=== PATIENT | female | born 1970 | race Caucasian/White ===

== ENCOUNTER 2017-01-01 01:44 | Observation (INO) | payer MEDICAID ==
[2017-01-01] MEDS ORDERED: ASPIRIN 81 MG CHEW PO STA (02:05)
[2017-01-01] MEDS ORDERED: NITROGLYCERIN SL TABS 0.4 MG TAB SUBLINGUAL STA ×3 (02:05)
--- NOTE | 2017-01-01 02:08 | ED ---
General Adult HPI - General Chief complaint: Chest Pain Stated complaint: chest pains Time Seen by Provider: 01/01/17 01:58 Source: patient, family, RN notes reviewed Mode of arrival: ambulatory Limitations: no limitations - History of Present Illness Initial comments: Patient is a pleasant 46-year-old female presenting to the emergency department complaining of chest discomfort. Discomfort is a squeezing sensation. Discomfort woke her up from sleep 40 minutes prior to arrival. Discomfort did radiate across the chest however now is just in the chest without radiation. Discomfort is currently 5/10. Patient does have some associated dyspnea. No nausea or diaphoresis. No history of similar symptoms previously. No leg pain or swelling. No cough or fever. - Related Data Home Medications Medication Instructions Recorded Confirmed Montelukast [Singulair] 10 mg PO DAILY 05/06/15 01/01/17 ALPRAZolam [Xanax] 0.25 mg PO BID PRN 08/30/16 01/01/17 Ibuprofen [Motrin] 800 mg PO Q6HR PRN 01/01/17 01/01/17 Allergies Allergy/AdvReac Type Severity Reaction Status Date / Time clarithromycin [From Biaxin] Allergy Unknown Verified 01/01/17 01:51 Childhood Sulfa (Sulfonamide Allergy Unknown Verified 01/01/17 01:51 Antibiotics) Review of Systems ROS Statement: Those systems with pertinent positive or pertinent negative responses have been documented in the HPI. ROS Other: All systems not noted in ROS Statement are negative. Constitutional: Denies: fever Eyes: Denies: eye pain ENT: Denies: ear pain Respiratory: Reports: dyspnea. Denies: cough Cardiovascular: Reports: chest pain Endocrine: Denies: fatigue Gastrointestinal: Denies: abdominal pain Genitourinary: Denies: dysuria Musculoskeletal: Denies: back pain Skin: Denies: rash Neurological: Denies: weakness Past Medical History Past Medical History: Asthma, GERD/Reflux, Osteoarthritis (OA) Additional Past Medical History / Comment(s): seasonal allergies History of Any Multi-Drug Resistant Organisms: None Reported Past Surgical History: Hysterectomy, Orthopedic Surgery, Tubal Ligation Additional Past Surgical History / Comment(s): right knee arthroscopy, left knee Past Anesthesia/Blood Transfusion Reactions: No Reported Reaction Past Psychological History: No Psychological Hx Reported Smoking Status: Former smoker Past Alcohol Use History: Occasional Past Drug Use History: None Reported - Past Family History Brother(s) Family Medical History: Cancer General Exam Limitations: no limitations General appearance: alert, in no apparent distress Head exam: Present: atraumatic Eye exam: Present: normal appearance ENT exam: Present: normal oropharynx Neck exam: Present: normal inspection Respiratory exam: Present: normal lung sounds bilaterally Cardiovascular Exam: Present: regular rate, normal rhythm Expanded Peripheral pulses: 2+: Radial (R), Radial (L), Dorsalis Pedis (R), Dorsalis Pedis (L) GI/Abdominal exam: Present: soft. Absent: tenderness Extremities exam: Present: normal inspection. Absent: pedal edema, calf tenderness Neurological exam: Present: alert Psychiatric exam: Present: normal affect, normal mood Skin exam: Absent: rash Course Vital Signs 01/01/17 01/01/17 01/01/17 01:47 02:30 02:44 Temperature 97.7 F Pulse Rate 78 68 70 Respiratory 20 14 14 Rate Blood Pressure 129/66 125/75 115/75 O2 Sat by Pulse 99 98 98 Oximetry 01/01/17 02:48 Temperature Pulse Rate 70 Respiratory 14 Rate Blood Pressure 109/68 O2 Sat by Pulse 99 Oximetry - Reevaluation(s) Reevaluation #1: 01/01/17 03:27 Patient reexamined and improved. Discomfort now 01/20. Patient updated on results and plan. Case was discussed in detail with Dr. Edmond, who will admit for Dorcas Garcia. Heparin will be started. Admission orders written. Consult placed for cardiology. EKG Findings - EKG Comments: EKG Findings:: Normal sinus rhythm at 69. NC 144. QRS 88. QT 402. QTC 4:30. Normal axis. Septal Q waves. No acute ST change. Medical Decision Making - Lab Data Result diagrams: 01/01/17 02:10 01/01/17 02:10 Lab Results 01/01/17 01/01/17 01/01/17 Range/Units 02:10 02:10 02:10 WBC 6.0 (3.8-10.6) k/uL RBC 4.32 (3.80-5.40) m/uL Hgb 13.4 (11.4-16.0) gm/dL Hct 40.6 (34.0-46.0) % MCV 93.9 (80.0-100.0) fL MCH 31.1 (25.0-35.0) pg MCHC 33.1 (31.0-37.0) g/dL RDW 12.6 (11.5-15.5) % Plt Count 274 (150-450) k/uL Neutrophils % 49 % Lymphocytes % 38 % Monocytes % 8 % Eosinophils % 2 % Basophils % 1 % Neutrophils # 2.9 (1.3-7.7) k/uL Lymphocytes # 2.3 (1.0-4.8) k/uL Monocytes # 0.5 (0-1.0) k/uL Eosinophils # 0.1 (0-0.7) k/uL Basophils # 0.0 (0-0.2) k/uL PT (9.0-12.0) sec INR (<1.1) APTT (22.0-30.0) sec D-Dimer (<0.60) mg/L FEU Sodium 143 (137-145) mmol/L Potassium 4.1 (3.5-5.1) mmol/L Chloride 108 H (98-107) mmol/L Carbon Dioxide 23 (22-30) mmol/L Anion Gap 12 mmol/L BUN 13 (7-17) mg/dL Creatinine 0.70 (0.52-1.04) mg/dL Est GFR (MDRD) Af Amer >60 (>60 ml/min/1.73 sqM) Est GFR (MDRD) Non-Af >60 (>60 ml/min/1.73 sqM) Glucose 102 H (74-99) mg/dL Calcium 9.2 (8.4-10.2) mg/dL Magnesium 1.9 (1.6-2.3) mg/dL Total Bilirubin 0.4 (0.2-1.3) mg/dL AST 18 (14-36) U/L ALT 32 (9-52) U/L Alkaline Phosphatase 61 (38-126) U/L Total Creatine Kinase 62 (30-135) U/L CK-MB (CK-2) 0.7 (0.0-2.4) ng/mL CK-MB (CK-2) Rel Index 1.1 Troponin I <0.012 (0.000-0.034) ng/mL NT-Pro-B Natriuret Pep pg/mL Total Protein 6.7 (6.3-8.2) g/dL Albumin 3.8 (3.5-5.0) g/dL 01/01/17 01/01/17 Range/Units 02:10 02:10 WBC (3.8-10.6) k/uL RBC (3.80-5.40) m/uL Hgb (11.4-16.0) gm/dL Hct (34.0-46.0) % MCV (80.0-100.0) fL MCH (25.0-35.0) pg MCHC (31.0-37.0) g/dL RDW (11.5-15.5) % Plt Count (150-450) k/uL Neutrophils % % Lymphocytes % % Monocytes % % Eosinophils % % Basophils % % Neutrophils # (1.3-7.7) k/uL Lymphocytes # (1.0-4.8) k/uL Monocytes # (0-1.0) k/uL Eosinophils # (0-0.7) k/uL Basophils # (0-0.2) k/uL PT 10.5 (9.0-12.0) sec INR 1.0 (<1.1) APTT 26.1 (22.0-30.0) sec D-Dimer 0.56 (<0.60) mg/L FEU Sodium (137-145) mmol/L Potassium (3.5-5.1) mmol/L Chloride (98-107) mmol/L Carbon Dioxide (22-30) mmol/L Anion Gap mmol/L BUN (7-17) mg/dL Creatinine (0.52-1.04) mg/dL Est GFR (MDRD) Af Amer (>60 ml/min/1.73 sqM) Est GFR (MDRD) Non-Af (>60 ml/min/1.73 sqM) Glucose (74-99) mg/dL Calcium (8.4-10.2) mg/dL Magnesium (1.6-2.3) mg/dL Total Bilirubin (0.2-1.3) mg/dL AST (14-36) U/L ALT (9-52) U/L Alkaline Phosphatase (38-126) U/L Total Creatine Kinase (30-135) U/L CK-MB (CK-2) (0.0-2.4) ng/mL CK-MB (CK-2) Rel Index Troponin I (0.000-0.034) ng/mL NT-Pro-B Natriuret Pep 88 pg/mL Total Protein (6.3-8.2) g/dL Albumin (3.5-5.0) g/dL - Radiology Data Radiology results: image reviewed (Chest x-ray shows no acute cardiopulmonary process.) Critical Care Time Critical Care Time: Yes Total Critical Care Time: 32 Disposition Clinical Impression: Unstable angina pectoris Disposition: ADMITTED IP TO THIS HOSP
[2017-01-01 02:20] LABS: Basophils % (A) 1 %; CH 31.6; CHCM 33.8; Eosinophils # (A) 0.1 k/uL (0-0.7); Eosinophils % (A) 2 %; HCT 40.6 % (34.0-46.0); HDW 2.46; HGB 13.4 gm/dL (11.4-16.0); Luc # (Auto) 0.17; Luc % (Auto) 3; Lymphocytes # (A) 2.3 k/uL (1.0-4.8); Lymphocytes % (A) 38 %; MCH 31.1 pg (25.0-35.0); MCHC 33.1 g/dL (31.0-37.0); MCV 93.9 fL (80.0-100.0); Mean Platelet Volume 7.3; Monocytes # (A) 0.5 k/uL (0-1.0); Monocytes % (A) 8 %; Neutrophils # (A) 2.9 k/uL (1.3-7.7); Neutrophils % (A) 49 %; RBC 4.32 m/uL (3.80-5.40); RDW 12.6 % (11.5-15.5); WBC (Perox) 5.87
[2017-01-01 02:34] LABS: ALT 32 U/L (9-52); AST 18 U/L (14-36); Alkaline Phosphatase 61 U/L (38-126); Anion Gap 12 mmol/L; Blood Urea Nitrogen 13 mg/dL (7-17); Calcium 9.2 mg/dL (8.4-10.2); Carbon Dioxide 23 mmol/L (22-30); Chloride 108 mmol/L (98-107); Glucose 102 mg/dL (74-99); Magnesium 1.9 mg/dL (1.6-2.3); Non-African American GFR(MDRD) >60 (>60 ml/min/1.73 sqM); Potassium 4.1 mmol/L (3.5-5.1); Sodium 143 mmol/L (137-145); Total Bilirubin 0.4 mg/dL (0.2-1.3); Total Protein 6.7 g/dL (6.3-8.2)
[2017-01-01 02:37] LABS: Partial Thromboplastin Time 26.1 sec (22.0-30.0); Prothrombin Time 10.5 sec (9.0-12.0)
--- NOTE | 2017-01-01 02:41 | XR ---
EXAMINATION TYPE: XR chest 2V DATE OF EXAM: 01/01/2017 2:28 AM COMPARISON: 05/06/2015 HISTORY: Chest pain with some shortness of breath history of atrial fibrillation and asthma TECHNIQUE: Frontal and lateral views of the chest are obtained. FINDINGS: There is no focal air space opacity, pleural effusion, or pneumothorax seen. Somewhat prom inent bronchovascular markings are noted bilaterally. The cardiac silhouette size is within normal l imits. The osseous structures are intact. IMPRESSION: 1. No acute cardiopulmonary process. 2. No significant interval change.
[2017-01-01 02:43] LABS: Creatine Kinase 62 U/L (30-135)
[2017-01-01 02:56] LABS: Creatine Kinase MB 0.7 ng/mL (0.0-2.4); Troponin I <0.012 ng/mL (0.000-0.034)
[2017-01-01] MEDS ORDERED: NITROGLYCERIN SL TABS 0.4 MG TAB SUBLINGUAL PRN (03:28)
[2017-01-01] MEDS ORDERED: HEPARIN SODIUM,PORCINE 5,000 UNIT/ML 1 ML VIAL IV ONE (03:28)
[2017-01-01] MEDS ORDERED: HEPARIN SODIUM,PORCINE 5,000 UNIT/ML 1 ML VIAL IV PRN (03:28)
[2017-01-01] MEDS ORDERED: HEPARIN SODIUM,PORCINE/D5W PMX 25,000 UNIT in DEXTROSE/WATER 1 500ML.BAG IV SCH (03:30)
[2017-01-01] MEDS: NITROGLYCERIN OINT 1 INCH/GM PACKET TOPICAL SCH ×2 (03:46→14:30)
[2017-01-01 04:43] VITALS: BMI 44.5
[2017-01-01] MEDS: ACETAMINOPHEN TAB 325 MG TAB PO PRN ×2 (04:57→10:52)
[2017-01-01 09:39] LABS: Mean Platelet Volume 8.2
--- NOTE | 2017-01-01 09:53 | CONS ---
DATE OF CONSULTATION: This is a 46-year-old lady who used to see Dr. Weiss prior to 2012. Apparently she had a diagnosis of palpitations, fibromyalgia and had some EP study the details of which are not available but she was not placed on any medications. She has been doing well overall and sees Dr. Dorcas Stein as her primary care physician. About April 2015, she had a 24-hour DCG that was performed and which this revealed basically sinus rhythm and sinus tachycardia without any arrhythmia when she perceived some rapid heart rate. However, she has been doing fairly well until yesterday when she started describing what she felt as squeezing sensation in the lower chest and upper abdomen that radiated across. It lasted on and off for some time made her feel uncomfortable. She also had some fluttering feeling in the chest. The discomfort was located below the sixth rib into the upper abdomen area. Quality of the pain is atypical. This has resolved. Her EKG and initial troponin are normal. She is resting comfortably without symptoms. PAST MEDICAL HISTORY: 1. Bronchial asthma. 2. A history of some palpitations in the past with EP study, but no prescription, probably no significant arrhythmia. 3. No history of any hypertension, diabetes, myocardial infarction or CVA. 4. She is status post knee arthroscopic surgery. 5. Hysterectomy. 6. Tubal ligation. Medications at home include: 1. Singulair. 2. Xanax. 3. Motrin p.r.n. SHE IS ALLERGIC TO SULFA. REVIEW OF SYSTEMS: Remarkable for some fibromyalgia type aches and pains and denies any chest pain related to physical activity. She does not have any hematemesis or melena, genitourinary symptoms, fevers with chills, or cough with expectoration. On examination, blood pressure is 120/70, pulse rate is 70 per minute, regular. HEENT: Unremarkable. Fundus was not examined by me. Neck is supple. There is no JVD. I do not hear a carotid bruit. There is no thyromegaly. Heart exam reveals S1 and S2 heard normally without a rub, murmur or gallop. Lungs are clear. ABDOMEN: Soft, nontender. Lower extremities reveal normal pulses. No edema. Central nervous system is normal. EKG revealed sinus mechanism within normal limits. Initial laboratory data revealed unremarkable troponins. IMPRESSION: 1. Atypical chest pain. 2. History of fibromyalgia. 3. History of some palpitations with a probably negative EP study. RECOMMENDATIONS: I am recommending that we discontinue IV, increase activity. If the second troponin is normal, and if she has no further symptoms, she can be discharged and I will see her in the office next week. We will consider outpatient testing at that time. She may require an event monitor if she continues to have palpitations. I discussed my thoughts in detail with the patient. Thank you very much for the consult.
[2017-01-01 10:00] LABS: Creatine Kinase 51 U/L (30-135)
[2017-01-01 10:13] LABS: Creatine Kinase MB 0.6 ng/mL (0.0-2.4); Troponin I <0.012 ng/mL (0.000-0.034)
[2017-01-01 11:52] VITALS: BP 126/76; PULSE 66; RESP 14; TEMP 98
[2017-01-01 14:17] LABS: Creatine Kinase 45 U/L (30-135)
[2017-01-01 14:30] LABS: Creatine Kinase MB 0.4 ng/mL (0.0-2.4); Troponin I <0.012 ng/mL (0.000-0.034)
[2017-01-02] MEDS ORDERED: ASPIRIN 325 MG TAB PO SCH (09:00)
--- NOTE | 2017-01-02 09:28 | HP ---
DATE OF ADMISSION: 01/01/2017 CHIEF COMPLAINT: Chest pain. HISTORY OF PRESENT ILLNESS: Ms. Swift is a 46-year-old female with known history of GERD, osteoarthritis, asthma and seasonal allergies, came to the ER with complaints of chest discomfort. The patient describes squeezing sensation early in the morning and she woke up around 9:00 a.m. The patient felt pain across the lower chest and associated nausea. No radiation. The patient does have associated shortness of breath. No diaphoresis. Patient denies any similar complaints in the past. No history of coronary artery disease or HI in the past. No recent illnesses. No leg swelling. No fever. No chills. No recent travel. No sick contacts at home. REVIEW OF SYSTEMS: CONSTITUTIONAL: No fever. No chills. No weakness or malaise. RESPIRATORY: No cough. CARDIOVASCULAR: No chest pain currently. No leg swelling. ABDOMEN: No nausea, vomiting, abdominal pain. No diarrhea. : No dysuria. PSYCHIATRY: Negative. ENDOCRINE: Negative. All other 14-point review of systems negative as above. PAST MEDICAL HISTORY: GERD, asthma, seasonal allergies, osteoarthritis. PAST SURGICAL HISTORY: Hysterectomy, orthopedic surgery and tubal ligation, right knee arthroscopy. No psychosocial history. SOCIAL HISTORY: Patient is a former smoker, quit smoking several years ago. Occasional alcohol use. Denied any drugs or IVDU. FAMILY HISTORY: Brother had cancer and both parents have congestive heart failure. ALLERGIES: CLARITHROMYCIN, SULFA. Home medications: 1. Singulair. 2. Xanax. 3. Ibuprofen. PHYSICAL EXAMINATION: 46-year-old female, lying in the bed comfortably, awake, alert, oriented, x3, appear to be in no apparent distress. VITALS: Blood pressure 129/66, pulse is 78, respirations 20, temperature afebrile, pulse ox 90% on room air. HEENT: Atraumatic, normocephalic tepid. NECK: Supple. No JVD. CVS: S1, S2 heard. No murmurs, no gallop, no rub. LUNGS: Bilateral air entry is present. No wheezing. No crackles. Nonlabored breathing. ABDOMEN: Soft, nontender, bowel sounds present. STAFF INTERNIST OFFICE BASED ONLY: Awake, alert, oriented, x3. No focal neurologic deficit. Cranial nerves grossly intact. EXTREMITIES: No edema. PSYCHIATRIC: Cooperative. LABORATORY DATA: WBC 6.3, hemoglobin 13.4, platelets 274, INR 1.0. D-dimer 0.56. Sodium 143, potassium 4.1, chloride 108, bicarb 23, BUN 30, creatinine 2.7, glucose 102, troponin x3 negative. Albumin 3.8. CHEST X-RAY: No acute cardiopulmonary process. No interval change. EKG normal sinus rhythm. IMPRESSION: 1. Atypical chest pain; rule out acute coronary syndrome. Chest pain could be most likely related to musculoskeletal or GERD-related symptoms. 2. NSAID in the form of Motrin. 3. Gastroesophageal reflux disease. The patient was on Prilosec before. 4. Asthma with seasonal allergies. 5. Fibromyalgia. 6. History of palpitations with negative EP study previously. 7. Deep venous thrombosis prophylaxis. 8. Morbid obesity with body mass index of 44.5. DISCUSSION AND PLAN: Patient will be continued on telemetry monitoring. Follow up serial EKGs and troponins are so far negative. Continue outpatient cardiology workup. Discharge once medically improved. Start the patient on PPI in the form of Protonix.
--- NOTE | 2017-01-02 21:26 | DS ---
DATE OF ADMISSION: 01/01/2017 DATE OF DISCHARGE: 01/01/2017 DISCHARGE DIAGNOSIS(ES): 1. Atypical chest pain. Rule out acute coronary syndrome, most likely secondary to gastroesophageal reflux disease related symptoms. 2. Fibromyalgia. 3. NSAID use. 4. History of palpitations with a history of [employer]PA[employer]ER study negative. 5. Morbid obesity. 6. Asthma with seasonal allergies. 7. Osteoarthritis. HOSPITAL COURSE: The patient is a 46 -year-old female admitted to the hospital with complaints of chest pain across the lower chest area associated with nausea. No diaphoresis. Minimal short of breath. D-dimer is negative. Otherwise, serial EKG and troponins are negative, the patient was seen by cardiology and recommend outpatient cardiac work-up. Currently, patient is chest pain free and will be discharged home in stable condition and follow with primary care physician and as well as Cardiology in the clinic. DISCHARGE PHYSICAL EXAMINATION: A 46-year-old man lying in the bed comfortably. Awake, alert and oriented times three. Appears in no apparent distress. VITALS: Blood pressure is 123/71, pulse is 79, respirations 18, temperature afebrile, pulse ox 96% on room air. LABORATORY DATA: Reviewed. DISCHARGE PHYSICAL EXAMINATION: Done. Discharge medications include: 1. Singulair 10 mg daily. 2. Xanax 0.25 mg p.o. b.i.d. p.r.n. for anxiety. 3. Albuterol one to two puffs t.i.d. for short of breath. 4. Cetirizine 10 mg p.o. daily p.r.n. ( ) allergies. 5. Fluticasone nasal spray one spray in nostril daily. 6. Protonix 40 mg a.c. breakfast. Activity as tolerated and heart healthy diet. Follow with Dr. Dorcas Stein in one to two days.
== END 2017-01-01 14:46 | disposition home or self-care (01) ==
LOC: EC 01:44 → 3OBS 03:28
PROVIDERS: ADMIT Hospitalist; ATTEND Hospitalist
DX: R07.89 Other chest pain (principal); E66.01 Morbid (severe) obesity due to excess calories; Z68.41 Body mass index [BMI] 40.0-44.9, adult; J45.909 Unspecified asthma, uncomplicated; K21.9 Gastro-esophageal reflux disease without esophagitis; M19.90 Unspecified osteoarthritis, unspecified site; M79.7 Fibromyalgia; Z82.49 Family history of ischemic heart disease and other diseases of the circulatory system; Z87.891 Personal history of nicotine dependence; Z88.2 Allergy status to sulfonamides; Z79.899 Other long term (current) drug therapy; Z88.1 Allergy status to other antibiotic agents
CPT/HCPCS: 36415; 93005; 85379; 83880; 80053; 82550; 82553; 83735; 84484; 85025; 85049; 85610; 85730; 71020; 99291; 96365; 96376; G0378; J1644 ×2

== ENCOUNTER → 2017-03-07 | Outpatient (CLI) | payer MEDICAID ==
[2017-03-07 14:54] LABS: Basophils % (A) 0 %; CH 31.3; Eosinophils # (A) 0.1 k/uL (0-0.7); Eosinophils % (A) 1 %; HCT 44.7 % (34.0-46.0); HDW 2.38; HGB 14.9 gm/dL (11.4-16.0); Luc # (Auto) 0.12; Luc % (Auto) 1; Lymphocytes # (A) 2.1 k/uL (1.0-4.8); Lymphocytes % (A) 24 %; MCH 31.8 pg (25.0-35.0); MCHC 33.4 g/dL (31.0-37.0); MCV 95.3 fL (80.0-100.0); Mean Platelet Volume 7.3; Monocytes # (A) 0.6 k/uL (0-1.0); Monocytes % (A) 7 %; Neutrophils % (A) 67 %; RBC 4.69 m/uL (3.80-5.40); RDW 12.6 % (11.5-15.5); WBC (Perox) 8.78
[2017-03-07 15:14] LABS: ALT 23 U/L (9-52); AST 16 U/L (14-36); Alkaline Phosphatase 69 U/L (38-126); Anion Gap 13 mmol/L; Blood Urea Nitrogen 12 mg/dL (7-17); Calcium 9.5 mg/dL (8.4-10.2); Carbon Dioxide 27 mmol/L (22-30); Chloride 107 mmol/L (98-107); Glucose 98 mg/dL (74-99); Non-African American GFR(MDRD) >60 (>60 ml/min/1.73 sqM); Potassium 3.9 mmol/L (3.5-5.1); Sodium 147 mmol/L (137-145); Total Bilirubin 0.8 mg/dL (0.2-1.3); Total Protein 7.7 g/dL (6.3-8.2)
== END ==
LOC: LABWHC1 14:21
PROVIDERS: ATTEND Physician Assistant Medical
DX: R53.83 Other fatigue (principal)
CPT/HCPCS: 36415; 80053; 84439; 84443; 85025

== ENCOUNTER → 2017-04-28 | Outpatient (CLI) | payer MEDICAID ==
--- NOTE | 2017-04-28 13:42 | MM ---
Reason for exam: screening (asymptomatic). Last mammogram was performed 1 year and 6 months ago. History: Patient is postmenopausal. Family history of breast cancer in paternal cousin. Physical Findings: A clinical breast exam by your physician is recommended on an annual basis and results should be correlated with mammographic findings. MG 3D Diag Mammo W/Cad ALLY Bilateral CC and MLO view(s) were taken. Prior study comparison: October 16, 2015, left breast MG 3d work up w/cad LT. October 05, 2015, bilateral MG screening mammo w CAD. There are scattered fibroglandular densities. No significant new findings when compared with previous films. These results were verbally communicated with the patient and result sheet given to the patient on 04/28/17. ASSESSMENT: Benign, BI-RAD 2 RECOMMENDATION: Routine screening mammogram of both breasts in 1 year.
== END ==
LOC: RADMAMWWP 12:56
PROVIDERS: ATTEND Family Medicine
DX: N64.4 Mastodynia (principal)
CPT/HCPCS: G0204; G0279

== ENCOUNTER → 2017-07-25 | Outpatient (CLI) | payer MEDICAID ==
[2017-07-25 10:28] LABS: Basophils % (A) 0 %; CH 32.1; CHCM 33.3; Eosinophils # (A) 0.1 k/uL (0-0.7); Eosinophils % (A) 1 %; HCT 43.4 % (34.0-46.0); HGB 14.4 gm/dL (11.4-16.0); Luc # (Auto) 0.08; Luc % (Auto) 2; Lymphocytes # (A) 1.2 k/uL (1.0-4.8); Lymphocytes % (A) 24 %; MCH 32.3 pg (25.0-35.0); MCHC 33.3 g/dL (31.0-37.0); Mean Platelet Volume 8.1; Monocytes # (A) 0.3 k/uL (0-1.0); Monocytes % (A) 6 %; Neutrophils # (A) 3.4 k/uL (1.3-7.7); Neutrophils % (A) 68 %; RBC 4.47 m/uL (3.80-5.40); WBC 5.1 k/uL (3.8-10.6); WBC (Perox) 5.12
[2017-07-25 11:25] LABS: ALT 32 U/L (9-52); AST 15 U/L (14-36); Alkaline Phosphatase 71 U/L (38-126); Anion Gap 8 mmol/L; Blood Urea Nitrogen 12 mg/dL (7-17); Calcium 9.2 mg/dL (8.4-10.2); Carbon Dioxide 26 mmol/L (22-30); Chloride 106 mmol/L (98-107); Glucose 89 mg/dL (74-99); Iron 111 ug/dL (37-170); Non-African American GFR(MDRD) >60 (>60 ml/min/1.73 sqM); Potassium 4.3 mmol/L (3.5-5.1); Sodium 140 mmol/L (137-145); Total Bilirubin 0.8 mg/dL (0.2-1.3); Total Protein 7.2 g/dL (6.3-8.2)
[2017-07-25 11:27] LABS: % Iron Saturation 40.1 % (20-50); Total Iron Binding Capacity 277 ug/dL (265-497)
[2017-07-25 12:04] LABS: Vitamin B12 385 pg/mL (239-931)
== END | disposition home or self-care (01) ==
LOC: LABWHC1 09:51
PROVIDERS: ATTEND Physician Assistant Medical
DX: R53.83 Other fatigue (principal)
CPT/HCPCS: 36415; 80053; 82607; 83540; 83550; 84439; 84443; 85025

== ENCOUNTER → 2018-03-30 | Outpatient (CLI) | payer MEDICAID ==
[2018-03-30 14:05] LABS: Basophils % (A) 0 %; Eosinophils # (A) 0.1 k/uL (0-0.7); Eosinophils % (A) 1 %; HCT 42.8 % (34.0-46.0); Lymphocytes # (A) 1.9 k/uL (1.0-4.8); Lymphocytes % (A) 28 %; MCHC 32.8 g/dL (31.0-37.0); MCV 94.6 fL (80.0-100.0); Mean Platelet Volume 8.3; Monocytes # (A) 0.4 k/uL (0-1.0); Monocytes % (A) 6 %; Neutrophils # (A) 4.2 k/uL (1.3-7.7); Neutrophils % (A) 63 %; Platelet Count 275 k/uL (150-450); RBC 4.53 m/uL (3.80-5.40); RDW 13.1 % (11.5-15.5); WBC 6.7 k/uL (3.8-10.6)
[2018-03-30 14:24] LABS: ALT 24 U/L (9-52); AST 16 U/L (14-36); Albumin 4.2 g/dL (3.5-5.0); Alkaline Phosphatase 61 U/L (38-126); Anion Gap 13 mmol/L; Blood Urea Nitrogen 17 mg/dL (7-17); Calcium 9.6 mg/dL (8.4-10.2); Carbon Dioxide 24 mmol/L (22-30); Chloride 105 mmol/L (98-107); Glucose 102 mg/dL (74-99); Potassium 4.3 mmol/L (3.5-5.1); Sodium 142 mmol/L (137-145); Total Bilirubin 0.5 mg/dL (0.2-1.3); Total Protein 7.3 g/dL (6.3-8.2)
[2018-03-30 19:13] LABS: Vitamin D 25 Hydroxy 16.9 ng/mL (30.0-100.0)
[2018-03-30 19:43] LABS: Folate, Serum 21.9 ng/mL
== END ==
LOC: LABWHC1 13:40
PROVIDERS: ATTEND Physician Assistant Medical
DX: R53.83 Other fatigue (principal); E66.9 Obesity, unspecified
CPT/HCPCS: 36415; 80053; 82306; 82607; 82728; 82746; 83540; 83550; 84443; 85025

== ENCOUNTER → 2019-01-22 | Outpatient (CLI) | payer MEDICAID ==
--- NOTE | 2019-01-22 08:42 | US ---
EXAMINATION TYPE: US abdomen complete DATE OF EXAM: 01/22/2019 COMPARISON: CLINICAL HISTORY: Rt upper Quad Pain R10.11. RUQ pain, NPO EXAM MEASUREMENTS: Liver Length: 15.9 cm Gallbladder Wall: 0.2 cm CBD: 0.4 cm Spleen: 11.7 cm Right Kidney: 11.2 x 5.7 x 4.5 cm Left Kidney: 11.4 x 5.3 x 4.9 cm Pancreas: Appears echogenic in appearance Liver: wnl Gallbladder: wnl Evidence for sonographic Tom's sign: neg CBD: wnl Spleen: wnl Right Kidney: wnl Left Kidney: wnl Upper IVC: wnl Abd Aorta: No AAA visualized The liver is homogenous. The intrahepatic portion of the IVC and proximal abdominal aorta are within normal limits. There is no evidence of cholelithiasis. Common bile duct is unremarkable. The visu alized portions of the pancreas are homogenous. The spleen is unremarkable. Kidneys are symmetric a nd free of hydronephrosis. No renal lesions are seen. IMPRESSION: No distinct abnormality appreciated.
== END | disposition home or self-care (01) ==
LOC: RADUSWWP 08:08
PROVIDERS: ATTEND Family Medicine
DX: R10.11 Right upper quadrant pain (principal)
CPT/HCPCS: 76700

== ENCOUNTER → 2019-06-07 | Outpatient (CLI) | payer MEDICAID ==
--- NOTE | 2019-06-07 11:21 | XR ---
EXAMINATION TYPE: XR Hip Complete RT DATE OF EXAM: 06/07/2019 CLINICAL HISTORY: Right hip pain with no known injury TECHNIQUE: AP frogleg views of the right hip are obtained. COMPARISON: 04/09/2014. FINDINGS: There is no acute fracture/dislocation evident in the right hip. The joint space in the r ight hip appears aligned. The overlying soft tissue appears unremarkable. IMPRESSION: There is no acute fracture or dislocation in the right hip. No significant degenerative change is seen. Therefore, MRI arthrogram could be considered to evaluate the hip labrum and soft tis sues if there is further clinical concern.
== END | disposition home or self-care (01) ==
LOC: RADXRMAIN 09:07
PROVIDERS: ATTEND Physician Assistant Medical
DX: M25.551 Pain in right hip (principal)
CPT/HCPCS: 73502

== ENCOUNTER → 2019-10-17 | Outpatient (CLI) | payer MEDICAID ==
[2019-10-17 17:10] LABS: Basophils % (A) 1 %; Eosinophils # (A) 0.2 k/uL (0-0.7); Eosinophils % (A) 3 %; HCT 44.8 % (34.0-46.0); Lymphocytes # (A) 2.1 k/uL (1.0-4.8); Lymphocytes % (A) 37 %; MCH 31.7 pg (25.0-35.0); MCHC 33.5 g/dL (31.0-37.0); MCV 94.6 fL (80.0-100.0); Mean Platelet Volume 8.3; Monocytes # (A) 0.4 k/uL (0-1.0); Monocytes % (A) 7 %; Neutrophils # (A) 2.8 k/uL (1.3-7.7); Neutrophils % (A) 50 %; Platelet Count 281 k/uL (150-450); RBC 4.74 m/uL (3.80-5.40); RDW 12.2 % (11.5-15.5); WBC 5.6 k/uL (3.8-10.6)
[2019-10-17 17:17] LABS: ALT 30 U/L (9-52); AST 26 U/L (14-36); African American GFR (CKD) >90 (>60 ml/min/1.73 sqM); Albumin 4.4 g/dL (3.5-5.0); Alkaline Phosphatase 69 U/L (38-126); Amylase 55 U/L (30-110); Anion Gap 8 mmol/L; Blood Urea Nitrogen 13 mg/dL (7-17); Calcium 9.7 mg/dL (8.4-10.2); Carbon Dioxide 25 mmol/L (22-30); Chloride 110 mmol/L (98-107); Glucose 100 mg/dL (74-99); Non-African American GFR(CKD) >90 (>60 ml/min/1.73 sqM); Potassium 4.1 mmol/L (3.5-5.1); Sodium 143 mmol/L (137-145); Total Bilirubin 0.5 mg/dL (0.2-1.3); Total Protein 7.7 g/dL (6.3-8.2)
--- NOTE | 2019-10-18 08:30 | US ---
EXAMINATION TYPE: US abdomen complete DATE OF EXAM: 10/17/2019 COMPARISON: Abdominal ultrasound dated 01/22/2019 CLINICAL HISTORY: R10.10 UPPER ABD PAIN,R19.7 DIARRHEA. vomiting. EXAM MEASUREMENTS: Liver Length: 17.0 cm Gallbladder Wall: .3 cm CBD: .5 cm Spleen: 10.0 cm Right Kidney: 9.8 x 4.7 x 5.3 cm Left Kidney: 10.5 x 4.8 x 4.1 cm Pancreas: Tail obscured by overlying bowel gas Liver: Within normal limits Gallbladder: No stones seen Evidence for sonographic Tom's sign: No CBD: wnl Spleen: wnl Right Kidney: wnl Left Kidney: wnl Upper IVC: wnl Abd Aorta: wnl The liver is homogenous. The intrahepatic portion of the IVC and proximal abdominal aorta are within normal limits. There is no evidence of cholelithiasis. Common bile duct is unremarkable. The visu alized portions of the pancreas are homogenous. The spleen is unremarkable. Kidneys are symmetric a nd free of hydronephrosis. No renal lesions are seen. IMPRESSION: Unremarkable abdominal ultrasound. No sonographic evidence of cholelithiasis nor acute ch olecystitis.
== END | disposition home or self-care (01) ==
LOC: RADUSWWP 16:11
PROVIDERS: ATTEND Family Medicine
DX: R10.10 Upper abdominal pain, unspecified (principal); R19.7 Diarrhea, unspecified; R11.2 Nausea with vomiting, unspecified; R60.0 Localized edema
CPT/HCPCS: 76700; 80053; 82150; 83690; 83880; 84443; 85025

== ENCOUNTER → 2020-10-28 | Outpatient (CLI) | payer MEDICAID ==
--- NOTE | 2020-10-28 10:58 | MM ---
Reason for exam: screening (asymptomatic). Last mammogram was performed 3 years and 6 months ago. History: Patient is postmenopausal. Family history of breast cancer in paternal cousin. Physical Findings: A clinical breast exam by your physician is recommended on an annual basis and results should be correlated with mammographic findings. MG 3D Screening Mammo W/Cad Bilateral CC and MLO view(s) were taken. Prior study comparison: April 28, 2017, bilateral MG 3d diag mammo w/cad ALLY. October 16, 2015, left breast MG 3d work up w/cad LT. There are scattered fibroglandular densities. Finding: There are indeterminate grouped/clustered calcifications in the upper outer quadrant, anterior position of the left breast. There is a chronic nodularity bilaterally. ASSESSMENT: Incomplete: need additional imaging evaluation, BI-RAD 0 RECOMMENDATION: Special view mammogram of the left breast. [facility] will attempt to contact patient to return for supplemental views.
== END | disposition home or self-care (01) ==
LOC: RADMAMWWP 07:27
PROVIDERS: ATTEND Family Medicine
DX: Z12.31 Encounter for screening mammogram for malignant neoplasm of breast (principal)
CPT/HCPCS: 77063; 77067

== ENCOUNTER → 2020-10-28 | Outpatient (CLI) | payer MEDICAID ==
[2020-10-28 08:34] LABS: Appearance,Urine Clear (Clear); Bilirubin,Urine Negative (Negative); Blood,Urine Negative (Negative); Color,Urine Yellow; Glucose,Urine (UA) Negative (Negative); Ketones,Urine Negative (Negative); Leukocyte Esterase,Urine Negative (Negative); Nitrite,Urine Negative (Negative); PH, Urine 5.5 (5.0-8.0); Protein,Urine Negative (Negative); Specific Gravity,Urine 1.021 (1.001-1.035); Urobilinogen,Urine <2.0 mg/dL (<2.0)
[2020-10-28 08:47] LABS: HCT 44.1 % (34.0-46.0); HGB 14.6 gm/dL (11.4-16.0); MCH 32.5 pg (25.0-35.0); MCV 98.4 fL (80.0-100.0); Mean Platelet Volume 7.6; Platelet Count 297 k/uL (150-450); RBC 4.48 m/uL (3.80-5.40); RDW 12.7 % (11.5-15.5); WBC 5.6 k/uL (3.8-10.6)
[2020-10-28 14:31] LABS: Hemoglobin A1C 5.3 % (4.0-6.0)
[2020-10-28 16:12] LABS: Folate, Serum 13.8 ng/mL
[2020-10-28 16:13] LABS: ALT 13 U/L (8-44); AST 14 U/L (13-35); African American GFR (CKD) 85.8 (60.0-200.0); Albumin/Globulin Ratio 1.76 (1.60-3.17); Alkaline Phosphatase 71 U/L (41-126); BUN/Creat Ratio 21.11 Ratio (12.00-20.00); C Reactive Protein <0.4 mg/dL (0.0-0.8); Calcium 9.8 mg/dL (8.7-10.3); Carbon Dioxide 29.5 mmol/L (21.6-31.8); Chloride 107 mmol/L (96-109); Creatine Kinase 30 U/L (26-186); Globulin 2.5 g/dL (1.6-3.3); Glucose 98 mg/dL (70-110); Potassium 5.1 mmol/L (3.5-5.5); Rheumatoid Factor, Qnt 5 IU/mL (0-15); Sodium 143 mmol/L (135-145); Total Bilirubin 0.3 mg/dL (0.2-1.2); Total Protein 6.9 g/dL (6.2-8.2)
[2020-10-28 17:55] LABS: Erythrocyte Sedimentation Rate 8 mm/Hr (0-30)
[2020-10-30 07:14] LABS: Vitamin E (Alpha Tocopherol) 975 ug/dL (500-1800)
[2020-10-30 07:29] LABS: Vit B1(Thiamine) 70 ug/L (38-122)
== END | disposition home or self-care (01) ==
LOC: LABWHC1 07:51
PROVIDERS: ATTEND Psychiatry & Neurology Pain Medicine
DX: G89.4 Chronic pain syndrome (principal); M79.7 Fibromyalgia; M25.50 Pain in unspecified joint; Z79.899 Other long term (current) drug therapy
CPT/HCPCS: 36415; 80053; 81003; 82306; 82550; 82607; 82746; 83036; 83519; 83735; 84207; 84425; 84439; 84443; 84446; 84481; 84590; 84591; 84597; 85027; 85652; 86038; 86140; 86431

== ENCOUNTER → 2020-11-04 | Outpatient (CLI) | payer MEDICAID ==
--- NOTE | 2020-11-09 08:08 | MM ---
Reason for exam: additional evaluation requested from abnormal screening. Last mammogram was performed less than 1 month ago. History: Patient is postmenopausal. Family history of breast cancer in paternal cousin at age 40. Physical Findings: Nurse did not find any significant physical abnormalities on exam. MG 3D Work Up W/Cad LT CC with magnification, LM with magnification, and LM view(s) were taken of the left breast. Prior study comparison: October 28, 2020, bilateral MG 3d screening mammo w/cad. April 28, 2017, bilateral MG 3d diag mammo w/cad ALLY. Finding: There are coarse heterogeneous calcifications in the left breast. These results were verbally communicated with the patient and result sheet given to the patient on 11/04/20. ASSESSMENT: Suspicious, BI-RAD 4 RECOMMENDATION: Stereotactic core biopsy of the left breast. Called Dr. Mcintyre's office with mammographic findings and has scheduled an appointment for the patient for 12/10/20 at 8:[address] Stein. Biopsy scheduled for 11/25/19 at 8:00. PRELIMINARY REPORT CALLED AND FAXED TO DR. STEIN ON 11/09/20.
== END | disposition home or self-care (01) ==
LOC: RADMAMWWP 15:01
PROVIDERS: ATTEND Family Medicine
DX: R92.8 Other abnormal and inconclusive findings on diagnostic imaging of breast (principal)
CPT/HCPCS: 77061; 77065

== ENCOUNTER → 2020-11-25 | Day surgery (SDC) | payer MEDICAID ==
[2020-11-25 07:28] VITALS: PULSE 76; RESP 16; TEMP 98.4
--- NOTE | 2020-11-25 15:10 | MM ---
EXAMINATION TYPE: MG stereo VAD BX LT DATE OF EXAM: 11/25/2020 COMPARISON: 10/28/2020 and 11/04/2020 CLINICAL HISTORY: 50-year-old female referred for stereotactic core needle biopsy of left breast microcalcifications TECHNIQUE: Stereotactic guided core biopsy of the 2:00 left breast. FINDINGS: The procedure of stereotactic guided core biopsy was explained to the patient. Benefits, alternatives, and risks were discussed. An informed consent was then obtained. [facility]. Shortness pathway was a lateral approach. I performed the localization, followed by the remainder of the procedure. A vacuum assisted biopsy gun was used to obtain 8 core samples. The patient tolerated the procedure well without any immediate complication. The patient was kept in the radiology department for short stay after the procedure and then discharged home in stable condition. Targeted calcifications are identified in specimen mammogram. Post biopsy mammogram shows approximately 1.4 cm of lateral clip migration. Multiple residual calculi remain. There is mild localized hematoma formation suggested given the increased density. IMPRESSION: SUCCESSFUL, STEREOTACTIC GUIDED CORE BIOPSY OF AREA OF CONCERN IN THE 2:00 LEFT BREAST, FULL PATHOLOGY RESULTS TO FOLLOW. NOTE 1.4 CM OF LATERAL CLIP MIGRATION AND SMALL HEMATOMA FORMATION. Pathology Results: Benign LEFT BREAST, STEREOTACTIC CORE BIOPSY: Fibrocystic changes including cysts with intraluminal calcium oxalate crystals, apocrine metaplasia and fibrosis. Recommendation Follow up mammogram of the left breast in 6 months. MTDD
== END ==
LOC: RADMAMWWP 07:18
PROVIDERS: ATTEND Surgery
DX: N60.82 Other benign mammary dysplasias of left breast (principal); N60.32 Fibrosclerosis of left breast
CPT/HCPCS: 88305; 19081; A4648; J2001

== ENCOUNTER → 2021-09-13 | Outpatient (CLI) | payer MEDICAID ==
--- NOTE | 2021-09-13 13:05 | MR ---
EXAMINATION TYPE: MR knee LT wo con DATE OF EXAM: 09/13/2021 COMPARISON: Prior left knee MRI 08/11/2016 HISTORY: Pain in left knee TECHNIQUE: Multiplanar, multisequence imaging of the left knee is performed without IV contrast. FINDINGS: MEDIAL MENISCUS: Pseudoextrusion is present similar to prior exam, findings are similar to prior, belinda e intrinsic increased signal is stable LATERAL MENISCUS: Anterior and posterior horns are intact without tear. CRUCIATE LIGAMENTS: The anterior and posterior cruciate ligaments are intact and unremarkable. COLLATERAL LIGAMENTS: The medial collateral ligament and lateral collateral ligament complex are inta ct and unremarkable. EXTENSOR MECHANISM: Visualized quadriceps and patellar tendons are intact. EFFUSION: There is a small suprapatellar joint effusion extending medially POPLITEAL CYST: Small semimembranosus gastrocnemius cyst is present measuring approximately 14 x 30 x 5 mm. TRICOMPARTMENT SPACES: Joint space loss is present in the medial compartment, is tricompartmental mar ginal spurring CARTILAGE: Some grade II chondromalacia suspected in the medial compartment and posterior patella BONE MARROW SIGNAL: No focal abnormal marrow signal is appreciated. OTHER: Subcutaneous edema changes are present. IMPRESSION: Osteoarthritis
== END | disposition home or self-care (01) ==
LOC: RADMRIMAIN 10:53
PROVIDERS: ATTEND Orthopaedic Surgery
DX: M17.12 Unilateral primary osteoarthritis, left knee (principal)

== ENCOUNTER → 2021-09-30 | Outpatient (CLI) | payer OTHER ==
--- NOTE | 2021-09-30 10:09 | XR ---
EXAMINATION TYPE: XR foot complete LT DATE OF EXAM: 09/30/2021 CLINICAL HISTORY: pain TECHNIQUE: Frontal, lateral and oblique images of the left foot are obtained. COMPARISON: None. FINDINGS: There is no acute fracture/dislocation evident. The joint spaces appear within normal mccollum its. The overlying soft tissue appears unremarkable. IMPRESSION: There is no acute fracture or dislocation. ICD 10 NO FRACTURE, INITIAL EVALUATION
== END ==
LOC: RADXRMAIN 09:40
PROVIDERS: ATTEND Emergency Medicine
DX: M79.672 Pain in left foot (principal)

== ENCOUNTER → 2022-05-03 | Outpatient (CLI) | payer MEDICAID ==
--- NOTE | 2022-05-03 15:38 | US ---
EXAMINATION TYPE: US abdomen complete DATE OF EXAM: 05/03/2022 COMPARISON: US dated112/18/2018 CLINICAL HISTORY: R10.12 Left upper quad abd pain. EXAM MEASUREMENTS: Liver Length: 13.2 cm Gallbladder Wall: 0.3 cm CBD: 0.4 cm Spleen: 11.3 cm Right Kidney: 11.9 x 5.1 x 5.2 cm Left Kidney: 10.9 x 5.8 x 5.6 cm Pancreas: visualized portions wnl Liver: wnl Gallbladder: No stones seen Evidence for sonographic Tom's sign: No CBD: wnl Spleen: wnl Right Kidney: No hydronephrosis or masses seen Left Kidney: No hydronephrosis or masses seen Upper IVC: wnl Abd Aorta: wnl IMPRESSION: No acute process.
[2022-05-03 22:25] LABS: Basophils # (A) 0.02 X 10*3/uL (0.00-0.10); Basophils % (A) 0.3 %; Eosinophils # (A) 0.07 X 10*3/uL (0.04-0.35); Eosinophils % (A) 1.2 %; HCT 41.3 % (37.2-46.3); HGB 13.1 g/dL (12.0-15.0); Immature Grans, Automated 0.5 %; Lymphocytes # (A) 1.39 X 10*3/uL (0.90-5.00); Lymphocytes % (A) 23.1 %; MCH 30.1 pg (27.0-32.0); MCHC 31.7 g/dL (32.0-37.0); MCV 94.9 fL (80.0-97.0); Mean Platelet Volume 11.4 fL (9.5-12.2); Monocytes # (A) 0.67 X 10*3/uL (0.20-1.00); Monocytes % (A) 11.1 %; NRBC Per 100 WBC 0 /100 WBCS (0.0-0.0); Neutrophils # (A) 3.84 X 10*3/uL (1.80-7.70); Neutrophils % (A) 63.8 %; Platelet Count 282 X 10*3/uL (140-440); RBC 4.35 X 10*6/uL (4.10-5.20); WBC 6.02 X 10*3/uL (4.50-10.00)
[2022-05-03 23:08] LABS: African American GFR (CKD) 106.4 (60.0-200.0); Albumin 4.3 g/dL (3.8-4.9); Albumin/Globulin Ratio 1.66 (1.60-3.17); Anion Gap 10.8 mmol/L (10.00-18.00); BUN/Creat Ratio 16.42 Ratio (12.00-20.00); Blood Urea Nitrogen 12.3 mg/dL (9.0-27.0); Calcium 9.4 mg/dL (8.7-10.3); Carbon Dioxide 26.5 mmol/L (20.0-27.5); Globulin 2.6 g/dL (1.6-3.3); Non-African American GFR(CKD) 91.8 (60.0-200.0); Potassium 4.2 mmol/L (3.5-5.5); Total Bilirubin 0.3 mg/dL (0.30-1.20)
== END | disposition home or self-care (01) ==
LOC: RADUSWWP 14:51
PROVIDERS: ATTEND Family Medicine
DX: R10.12 Left upper quadrant pain (principal)
CPT/HCPCS: 76700; 80053; 82150; 83690; 85025

== ENCOUNTER → 2022-05-18 | Outpatient (CLI) | payer MEDICAID ==
--- NOTE | 2022-05-18 11:05 | CT ---
EXAMINATION TYPE: CT abdomen w con CT DLP: 1398.4 mGycm, Automated exposure control for dose reduction was used. DATE OF EXAM: 05/18/2022 10:38 AM COMPARISON: None CLINICAL INDICATION:Female, 52 years old with history of Upper Abdominal Pain R10.10; Upper abd pain TECHNIQUE: Standard CT of the abdomen and pelvis following the administration of 100 cc of Isovue 3 00 IV contrast material. Coronal and sagittal reformats were performed. FINDINGS: LOWER CHEST: Unremarkable ABDOMEN LIVER: Diffusely hypoattenuating parenchyma. Right hepatic lobe segment 6 cyst. GALLBLADDER AND BILE DUCTS: The common bile duct is enlarged measuring up to 8 mm. PANCREAS: Unremarkable. SPLEEN: Unremarkable. ADRENAL GLANDS: Unremarkable. KIDNEYS AND URETERS: No evidence of hydronephrosis or renal calculus. The ureters are unremarkable. ABDOMEN & PELVIS STOMACH AND BOWEL: No evidence of bowel obstruction. Second portion of duodenum diverticulum. Few sca ttered clonic diverticula are present. The appendix is normal.22 PERITONEUM: No evidence of pneumoperitoneum or free fluid. VASCULATURE: No evidence of aortic aneurysm. MUSCULOSKELETAL: No acute osseous abnormalities. Mild multilevel disc degeneration changes throughout the spine. LYMPH NODES: No gross evidence for lymphadenopathy. SOFT TISSUE/ABDOMINAL WALL: Unremarkable IMPRESSION: 1. No evidence for acute abdominal process. 2. Hepatic steatosis. 3. Mildly enlarged common bile duct up to 8 mm. It is clinical concern for choledocholithiasis consi denia MRCP.
== END | disposition home or self-care (01) ==
LOC: RADCTMAIN 09:10
PROVIDERS: ATTEND Family Medicine
DX: K76.0 Fatty (change of) liver, not elsewhere classified (principal); K80.20 Calculus of gallbladder without cholecystitis without obstruction
CPT/HCPCS: 74160; Q9967 ×2

== ENCOUNTER 2022-05-19 11:31 | Emergency (ER) | payer MEDICAID ==
[2022-05-19 11:36] VITALS: RESP 18
[2022-05-19] MEDS ORDERED: SODIUM CHLORIDE 0.9% 1,000 ML IV STA (12:09)
[2022-05-19] MEDS ORDERED: ONDANSETRON 4 MG/2 ML VIAL IVP STA (12:13)
[2022-05-19] MEDS ORDERED: HYDROmorphone 0.5 MG/0.5 ML SYRINGE IVP STA (12:13)
[2022-05-19 12:56] LABS: Partial Thromboplastin Time 27.8 sec (22.0-30.0); Prothrombin Time 10.5 sec (9.0-12.0)
[2022-05-19 12:58] LABS: HCT 45.4 % (34.0-46.0); HGB 15.1 gm/dL (11.4-16.0); MCH 32.2 pg (25.0-35.0); MCHC 33.3 g/dL (31.0-37.0); MCV 96.5 fL (80.0-100.0); Platelet Count 266 k/uL (150-450); RDW 13.5 % (11.5-15.5); WBC 2.5 k/uL (3.8-10.6)
[2022-05-19 13:08] LABS: ALT 18 U/L (4-34); AST 28 U/L (14-36); African American GFR (CKD) >90 (>60 ml/min/1.73 sqM); Albumin 4.4 g/dL (3.5-5.0); Alkaline Phosphatase 90 U/L (38-126); Amylase 61 U/L (30-110); Anion Gap 9 mmol/L; Blood Urea Nitrogen 12 mg/dL (7-17); Calcium 8.8 mg/dL (8.4-10.2); Carbon Dioxide 24 mmol/L (22-30); Chloride 105 mmol/L (98-107); Glucose 100 mg/dL (74-99); Lipase 88 U/L (23-300); Non-African American GFR(CKD) >90 (>60 ml/min/1.73 sqM); Potassium 4.1 mmol/L (3.5-5.1); Sodium 138 mmol/L (137-145); Total Bilirubin 0.6 mg/dL (0.2-1.3); Total Protein 7.8 g/dL (6.3-8.2)
[2022-05-19 13:21] LABS: Lymphocytes # (M) 0.93 k/uL (1.0-4.8); Metamyelocytes # (M) 0.03 k/uL (0); Metamyelocytes % 1 %; Neutrophils # (M) 1.15 k/uL (1.3-7.7); Neutrophils % (M) 46 %; Nucleated Red Blood Cells 0 /100 WBC (0-0); Polychromasia Present; Total Cells Counted 100
[2022-05-19 13:45] LABS: Appearance,Urine Cloudy (Clear); Bacteria,Urine Rare /hpf; Bilirubin,Urine Negative (Negative); Blood,Urine Trace (Negative); Color,Urine Yellow; Glucose,Urine (UA) Negative (Negative); Hyaline Casts,Urine 6 /lpf (0-2); Ketones,Urine 1+ (Negative); Leukocyte Esterase,Urine Negative (Negative); Mucus,Urine Many /hpf; Nitrite,Urine Negative (Negative); PH, Urine 5.5 (5.0-8.0); Protein,Urine 1+ (Negative); RBC,Urine 6 /hpf (0-5); Specific Gravity,Urine 1.025 (1.001-1.035); Squamous Epithelial Cell,Urine 20 /hpf (0-4); WBC,Urine 2 /hpf (0-5)
[2022-05-19] MEDS ORDERED: ACET/COD 300 MG/30 MG STARTER PACK 6 TAB BTL PO STA (14:11)
--- NOTE | 2022-05-19 14:14 | ED ---
Abdominal Pain HPI - General Chief Complaint: Abdominal Pain Stated Complaint: Abd pain Time Seen by Provider: 05/19/22 11:57 Source: patient, RN notes reviewed Mode of arrival: ambulatory Limitations: no limitations - History of Present Illness Initial Comments: 52-year-old female resents to the emergency Department chief complaint of abdominal pain. Patient states she's been being worked up outpatient by her PCP for gallbladder issues. She's been having right upper quadrant abdominal pain. She had recent ultrasound and CAT scan done yesterday. Patient ultrasound was unremarkable CT showed possible dilated common bile duct. Patient states that she eats certain foods causes increasing pain. She has mid to mild nausea no vomiting no diarrhea no constipation patient states she is scheduled see Dr. bedoya. Patient offers no other complaints. - Related Data Home Medications Medication Instructions Recorded Confirmed Montelukast [Singulair] 10 mg PO HS 05/06/15 05/19/22 Albuterol Sulfate [Proair Hfa] 1 - 2 puff INHALATION RT-TID PRN 01/01/17 05/19/22 DULoxetine HCL [Cymbalta] 60 mg PO DAILY 11/16/20 05/19/22 Metoprolol Succinate [Toprol XL] 50 mg PO HS 11/16/20 05/19/22 DULoxetine HCL [Cymbalta] 30 mg PO HS 05/19/22 05/19/22 Mirabegron [Myrbetriq] 50 mg PO DAILY 05/19/22 05/19/22 Previous Rx's Medication Instructions Recorded Pantoprazole Sodium [Protonix] 40 mg PO AC-BRKFST #30 tablet. 01/01/17 Ondansetron Odt [Zofran Odt] 4 mg PO Q8HR PRN #10 tab 05/19/22 Allergies Allergy/AdvReac Type Severity Reaction Status Date / Time clarithromycin [From Biaxin] Allergy Dyspnea Verified 05/19/22 14:07 Sulfa (Sulfonamide Allergy Rash/Hives Verified 05/19/22 14:07 Antibiotics) celery AdvReac Unknown Verified 05/19/22 14:07 Review of Systems ROS Statement: Those systems with pertinent positive or pertinent negative responses have been documented in the HPI. ROS Other: All systems not noted in ROS Statement are negative. Past Medical History Past Medical History: Atrial Fibrillation, Asthma, GERD/Reflux, Hypertension, Osteoarthritis (OA), Pneumonia Additional Past Medical History / Comment(s): seasonal allergies, EPStudy with Dr. Weiss approx. 15 years ago for A-fib History of Any Multi-Drug Resistant Organisms: None Reported Past Surgical History: Hysterectomy, Orthopedic Surgery, Tubal Ligation Additional Past Surgical History / Comment(s): right knee arthroscopy, left knee arthroscopy, colonoscopy Past Anesthesia/Blood Transfusion Reactions: No Reported Reaction Past Psychological History: No Psychological Hx Reported Smoking Status: Former smoker Past Alcohol Use History: Occasional Past Drug Use History: None Reported - Past Family History Brother(s) Family Medical History: Cancer Additional Family Medical History / Comment(s): hodgkins General Exam Limitations: no limitations General appearance: alert, in no apparent distress Head exam: Present: atraumatic, normocephalic, normal inspection Eye exam: Present: normal appearance, PERRL, EOMI. Absent: scleral icterus, conjunctival injection, periorbital swelling Respiratory exam: Present: normal lung sounds bilaterally. Absent: respiratory distress, wheezes, rales, rhonchi, stridor Cardiovascular Exam: Present: regular rate, normal rhythm, normal heart sounds. Absent: systolic murmur, diastolic murmur, rubs, gallop, clicks GI/Abdominal exam: Present: soft, tenderness, normal bowel sounds. Absent: distended, guarding, rebound, rigid Back exam: Absent: CVA tenderness (R), CVA tenderness (L) Course Vital Signs 05/19/22 05/19/22 11:32 13:14 Temperature 98.0 F Pulse Rate 92 Respiratory 18 Rate Blood Pressure 134/88 137/76 O2 Sat by Pulse 97 Oximetry Medical Decision Making - Medical Decision Making I did review prior imaging including ultrasound and CT. Ultrasound was unremarkable normal common bile duct no stones noted CT showed possible dilated common bile duct but no mass or stone noted. Patient's labwork unremarkable including normal bilirubin normal LFTs. Patient may have underlying biliary dyskinesia patient is scheduled follow-up outpatient with discussed low-fat diet and follow-up with PCP. - Lab Data Result diagrams: 05/19/22 12:12 05/19/22 12:12 Lab Results 05/19/22 05/19/22 05/19/22 Range/Units 12:12 12:12 12:12 WBC 2.5 L (3.8-10.6) k/uL RBC 4.70 (3.80-5.40) m/uL Hgb 15.1 (11.4-16.0) gm/dL Hct 45.4 (34.0-46.0) % MCV 96.5 (80.0-100.0) fL MCH 32.2 (25.0-35.0) pg MCHC 33.3 (31.0-37.0) g/dL RDW 13.5 (11.5-15.5) % Plt Count 266 (150-450) k/uL MPV 8.0 Neutrophils % (Manual) 46 % Lymphocytes % (Manual) 37 % Monocytes % (Manual) 16 % Metamyelocytes % 1 % Neutrophils # (Manual) 1.15 L (1.3-7.7) k/uL Lymphocytes # (Manual) 0.93 L (1.0-4.8) k/uL Monocytes # (Manual) 0.40 (0-1.0) k/uL Metamyelocytes # (Man) 0.03 H (0) k/uL Nucleated RBCs 0 (0-0) /100 WBC Polychromasia Present PT 10.5 (9.0-12.0) sec INR 1.0 (<1.2) APTT 27.8 (22.0-30.0) sec Sodium (137-145) mmol/L Potassium (3.5-5.1) mmol/L Chloride (98-107) mmol/L Carbon Dioxide (22-30) mmol/L Anion Gap mmol/L BUN (7-17) mg/dL Creatinine (0.52-1.04) mg/dL Est GFR (CKD-EPI)AfAm (>60 ml/min/1.73 sqM) Est GFR (CKD-EPI)NonAf (>60 ml/min/1.73 sqM) Glucose (74-99) mg/dL Plasma Lactic Acid Erick (0.7-2.0) mmol/L Calcium (8.4-10.2) mg/dL Total Bilirubin (0.2-1.3) mg/dL AST (14-36) U/L ALT (4-34) U/L Alkaline Phosphatase (38-126) U/L Total Protein (6.3-8.2) g/dL Albumin (3.5-5.0) g/dL Amylase (30-110) U/L Lipase (23-300) U/L Urine Color Yellow Urine Appearance Cloudy H (Clear) Urine pH 5.5 (5.0-8.0) Ur Specific [place] 1.025 (1.001-1.035) Urine Protein 1+ H (Negative) Urine Glucose (UA) Negative (Negative) Urine Ketones 1+ H (Negative) Urine Blood Trace H (Negative) Urine Nitrite Negative (Negative) Urine Bilirubin Negative (Negative) Urine Urobilinogen 2.0 (<2.0) mg/dL Ur Leukocyte Esterase Negative (Negative) Urine RBC 6 H (0-5) /hpf Urine WBC 2 (0-5) /hpf Ur Squamous Epith Cells 20 H (0-4) /hpf Urine Bacteria Rare H (None) /hpf Hyaline Casts 6 H (0-2) /lpf Urine Mucus Many H (None) /hpf 05/19/22 05/19/22 Range/Units 12:12 12:12 WBC (3.8-10.6) k/uL RBC (3.80-5.40) m/uL Hgb (11.4-16.0) gm/dL Hct (34.0-46.0) % MCV (80.0-100.0) fL MCH (25.0-35.0) pg MCHC (31.0-37.0) g/dL RDW (11.5-15.5) % Plt Count (150-450) k/uL MPV Neutrophils % (Manual) % Lymphocytes % (Manual) % Monocytes % (Manual) % Metamyelocytes % % Neutrophils # (Manual) (1.3-7.7) k/uL Lymphocytes # (Manual) (1.0-4.8) k/uL Monocytes # (Manual) (0-1.0) k/uL Metamyelocytes # (Man) (0) k/uL Nucleated RBCs (0-0) /100 WBC Polychromasia PT (9.0-12.0) sec INR (<1.2) APTT (22.0-30.0) sec Sodium 138 (137-145) mmol/L Potassium 4.1 (3.5-5.1) mmol/L Chloride 105 (98-107) mmol/L Carbon Dioxide 24 (22-30) mmol/L Anion Gap 9 mmol/L BUN 12 (7-17) mg/dL Creatinine 0.71 (0.52-1.04) mg/dL Est GFR (CKD-EPI)AfAm >90 (>60 ml/min/1.73 sqM) Est GFR (CKD-EPI)NonAf >90 (>60 ml/min/1.73 sqM) Glucose 100 H (74-99) mg/dL Plasma Lactic Acid Erick 0.9 (0.7-2.0) mmol/L Calcium 8.8 (8.4-10.2) mg/dL Total Bilirubin 0.6 (0.2-1.3) mg/dL AST 28 (14-36) U/L ALT 18 (4-34) U/L Alkaline Phosphatase 90 (38-126) U/L Total Protein 7.8 (6.3-8.2) g/dL Albumin 4.4 (3.5-5.0) g/dL Amylase 61 (30-110) U/L Lipase 88 (23-300) U/L Urine Color Urine Appearance (Clear) Urine pH (5.0-8.0) Ur Specific [place] (1.001-1.035) Urine Protein (Negative) Urine Glucose (UA) (Negative) Urine Ketones (Negative) Urine Blood (Negative) Urine Nitrite (Negative) Urine Bilirubin (Negative) Urine Urobilinogen (<2.0) mg/dL Ur Leukocyte Esterase (Negative) Urine RBC (0-5) /hpf Urine WBC (0-5) /hpf Ur Squamous Epith Cells (0-4) /hpf Urine Bacteria (None) /hpf Hyaline Casts (0-2) /lpf Urine Mucus (None) /hpf Disposition Clinical Impression: Biliary colic symptom, Abdominal pain Disposition: HOME SELF-CARE Condition: Stable Instructions (If sedation given, give patient instructions): Low Fat Diet (ED), Abdominal Pain (ED) Additional Instructions: Please return to the Emergency Department if symptoms worsen or any other concerns. Prescriptions: Ondansetron Odt [Zofran Odt] 4 mg PO Q8HR PRN #10 tab PRN Reason: Nausea Is patient prescribed a controlled substance at d/c from ED?: No Referrals: Juan Mcintyre III, MD [Primary Care Provider] - 1-2 days Time of Disposition: 14:14
[2022-05-19 14:31] VITALS: BP 110/71; PULSE 70; TEMP 98.3
== END 2022-05-19 14:26 | disposition home or self-care (01) ==
LOC: EC 11:31
DX: K80.50 Calculus of bile duct without cholangitis or cholecystitis without obstruction (principal); J45.909 Unspecified asthma, uncomplicated; I10 Essential (primary) hypertension; Z87.891 Personal history of nicotine dependence; Z88.2 Allergy status to sulfonamides; Z91.09 Other allergy status, other than to drugs and biological substances; Z88.1 Allergy status to other antibiotic agents
CPT/HCPCS: 36415; 80053; 82150; 83605; 83690; 85025; 85610; 85730; 81001; 99284; 96374; 96375; 96361; J2405; J1170

== ENCOUNTER → 2022-06-06 | Outpatient (CLI) | payer MEDICAID ==
--- NOTE | 2022-06-06 15:47 | US ---
EXAMINATION TYPE: US thyroid st tissue head/neck DATE OF EXAM: 06/06/2022 COMPARISON: NONE CLINICAL HISTORY: R13.10 DYSPHAGIA. GLAND SIZE: Right Lobe: 4.7 x 1.4 x 1.0 cm Overall Parenchyma: heterogenous Left Lobe: 3.7 x 1.2 x 1.2 cm Overall Parenchyma: heterogeneous Isthmus Thickness: 0.2 cm NODULES RIGHT: # of nodules measured on right: 0 LEFT: # of nodules measured on left: 0 ISTHMUS: # of nodules measured in the isthmus: 0 Bilateral neck scanned, no evidence of lymphadenopathy. IMPRESSION: No suspicious nodules
== END | disposition home or self-care (01) ==
LOC: RADUSWWP 15:22
PROVIDERS: ATTEND Surgery
DX: R13.10 Dysphagia, unspecified (principal)
CPT/HCPCS: 76536

== ENCOUNTER 2022-06-13 10:17 | Day surgery (SDC) | payer MEDICAID ==
[~2022-06-13 10:17] MED LIST: LACTATED RINGERS 1,000 ML IV SCH; LIDOCAINE 1% (10MG/ML) FOR IV START INTRADERMA PRN
[2022-06-13 10:42] VITALS: TEMP 97.2
[2022-06-13] MEDS ORDERED: LIDOCAINE 2% INJ 20 MG/ML (2 ML VIAL) ONE (10:57)
[2022-06-13] MEDS ORDERED: PROPOFOL 10 MG/ML 20 ML VIAL IV ONE (10:57)
--- NOTE | 2022-06-13 11:29 | P.PCN ---
Date of Procedure: 06/13/22 Preoperative Diagnosis: Abdominal pain, nausea, diarrhea, colon cancer screening Postoperative Diagnosis: Same, hiatal hernia, gastric polyp Procedure(s) Performed: EGD with biopsy, colonoscopy with biopsy Anesthesia: MAC Surgeon: Jennifer Woods Pathology: other Condition: stable Disposition: PACU Indications for Procedure: Patient presented for colon cancer. She's also had abdominal pain, nausea and diarrhea. Description of Procedure: The patient's taken to the endoscopy suite were gastroscope is passed through the third and fourth portions of the duodenum. The pharynx is unremarkable. Saphenous is without evidence of esophagitis or mass lesion. GE junction is without inflammatory change. There is a small sliding hiatal hernia. In the fundus of the stomach there were some small polyps appear benign. Once this was biopsied to confirm this. Otherwise the stomach, pylorus and duodenum without evidence of ulcer, mass lesion, ulcer or other mucosal abnormality. Villous pattern of the duodenum appeared fairly normal cold biopsies were obtained to rule out villous atrophy. She is then repositioned in a colonoscope is passed per rectum to the terminal ileum. She had excellent prep there is no evidence of polyp, mass lesion, ulcer, stricture, diverticuli or other mucosal abnormality. No significant hemorrhoidal disease was seen on retroflexion of the scope. Some cold biopsies were obtained in the terminal ileum and then randomly of the colon to rule out microscopic inflammation. She tolerated the procedure without difficulty and is taken to recovery room in satisfactory condition. We'll call her with the report of the biopsies and have further maira mmendations to follow. Plan - Discharge Summary Discharge Rx Participant: No New Discharge Prescriptions: No Action Montelukast [Singulair] 10 mg PO HS Albuterol Sulfate [Proair Hfa] 1 - 2 puff INHALATION RT-TID PRN PRN Reason: Shortness Of Breath Pantoprazole Sodium [Protonix] 40 mg PO AC-BRKFST #30 tablet. Metoprolol Succinate [Toprol XL] 50 mg PO HS DULoxetine HCL [Cymbalta] 60 mg PO DAILY DULoxetine HCL [Cymbalta] 30 mg PO HS Mirabegron [Myrbetriq] 50 mg PO DAILY Discharge Medication List Montelukast [Singulair] 10 mg PO HS 05/06/15 [History] Albuterol Sulfate [Proair Hfa] 1 - 2 puff INHALATION RT-TID PRN 01/01/17 [History] Pantoprazole Sodium [Protonix] 40 mg PO AC-BRKFST #30 tablet. 01/01/17 [Rx] DULoxetine HCL [Cymbalta] 60 mg PO DAILY 11/16/20 [History] Metoprolol Succinate [Toprol XL] 50 mg PO HS 11/16/20 [History] DULoxetine HCL [Cymbalta] 30 mg PO HS 05/19/22 [History] Mirabegron [Myrbetriq] 50 mg PO DAILY 05/19/22 [History] Discharge Disposition: HOME SELF-CARE
[2022-06-13] MEDS ORDERED: ONDANSETRON 4 MG/2 ML VIAL IVP ONE (11:33)
[2022-06-13] MEDS ORDERED: ONDANSETRON 4 MG/2 ML VIAL ONE (11:34)
[2022-06-13 11:55] VITALS: RESP 18
[2022-06-13 12:24] VITALS: BP 132/85; PULSE 75
== END 2022-06-13 12:15 | disposition home or self-care (01) ==
LOC: ORWHC2ENDO 10:17
PROVIDERS: ATTEND Surgery
DX: K31.7 Polyp of stomach and duodenum (principal); R19.7 Diarrhea, unspecified; M19.90 Unspecified osteoarthritis, unspecified site; J45.909 Unspecified asthma, uncomplicated; I48.91 Unspecified atrial fibrillation; F32.A Depression, unspecified; I10 Essential (primary) hypertension; Z87.891 Personal history of nicotine dependence; E07.9 Disorder of thyroid, unspecified; K21.9 Gastro-esophageal reflux disease without esophagitis; Z98.51 Tubal ligation status; Z90.710 Acquired absence of both cervix and uterus; Z98.890 Other specified postprocedural states; Z83.3 Family history of diabetes mellitus; Z80.8 Family history of malignant neoplasm of other organs or systems; Z82.49 Family history of ischemic heart disease and other diseases of the circulatory system; Z79.899 Other long term (current) drug therapy; Z88.1 Allergy status to other antibiotic agents; Z88.2 Allergy status to sulfonamides
CPT/HCPCS: 88305; 45380; 43239; J2405; J2704; J2001

== ENCOUNTER → 2022-07-21 | Outpatient (CLI) | payer MEDICAID ==
[2022-07-22 11:48] LABS: Clam IgE <0.10 kU/L; Codfish IgE <0.10 kU/L; Egg White IgE <0.10 kU/L; Peanut IgE <0.10 kU/L; Scallop IgE <0.10 kU/L; Shrimp IgE <0.10 kU/L; Soybean IgE <0.10 kU/L; Walnut IgE (Food) <0.10 kU/L
== END | disposition home or self-care (01) ==
LOC: LABWHC1 16:31
PROVIDERS: ATTEND Surgery
DX: R19.7 Diarrhea, unspecified (principal)
CPT/HCPCS: 36415; 82785; 86003

== ENCOUNTER → 2022-08-02 | Outpatient (CLI) | payer MEDICAID ==
--- NOTE | 2022-08-02 14:32 | XR ---
EXAMINATION TYPE: XR knee complete RT DATE OF EXAM: 08/02/2022 2:10 PM INDICATION: Patient age:Female; 52 years old; Reason for study: M25.561 Pain right knee; COMPARISON: None. TECHNIQUE: The Right knee(s) was examined in 3 projections. Frontal, lateral and oblique. FINDINGS: Mild osteophyte formation of the patella and tibial plateau. No evidence of any acute osse ous pathology, joint space narrowing, soft tissue swelling, or joint effusion is noted. IMPRESSION: 1. No acute osseous pathology. 2. Mild tricompartmental osteoarthritic changes.
== END | disposition home or self-care (01) ==
LOC: RADXRMAIN 13:46
PROVIDERS: ATTEND Nurse Practitioner Family
DX: M17.11 Unilateral primary osteoarthritis, right knee (principal)